=== PATIENT | male | born 1940 | race Caucasian/White ===

== ENCOUNTER 2017-01-19 05:00 | Emergency (ER) | payer MEDICARE, OTHER ==
[~2017-01-19] VITALS: Ht 180.3 cm; Wt 98.0 kg
[~2017-01-19 05:00] MED LIST: ASPI81TA11 PO; GLUC10TA3 PO; HYDR12.56 PO; LEVO75TA3 PO; METF500 PO; METO50TA PO; VASO10TA8 PO; ZOCO40TA PO
[2017-01-19] MEDS ORDERED: ASPI81CH CHEW (05:04)
[2017-01-19] MEDS ORDERED: ENAL10TA PO (05:04)
[2017-01-19] MEDS ORDERED: GLIP10TA6 PO (05:05)
[2017-01-19] MEDS ORDERED: METF500T PO (05:05)
[2017-01-19] MEDS ORDERED: LEVO75TA3 PO (05:05)
[2017-01-19 05:06] VITALS: BP 143/69; PULSE 71; RESP 18; TEMP 97.9; O2SAT 97
[2017-01-19] MEDS ORDERED: SIMV40TA PO (05:06)
[2017-01-19] MEDS ORDERED: METO50TA PO (05:06)
[2017-01-19] MEDS ORDERED: SODIUM CHLOR 0.9% 1000 ML INJ 1,000 ML IV ONE (05:15)
--- NOTE | 2017-01-19 05:24 | PD ---
HPI Chief Complaint: Diabetic Time Seen by Provider: 05:09 Travel History International Travel<30 days: No Contact w/Intl Traveler<30days: No Traveled to known affect area: No History of Present Illness HPI This 76-year-old male presents emergency department complaining of weakness. States he's been feeling perfectly well and healthy and then tonight while he was sleeping he got up to use the bathroom but states when he went to get up he felt too weak to be of the stand. His roommate called the ambulance. EMS found with a blood sugar in the 50s. They gave him some IV dextrose and his blood sugar improved. Patient feels little bit better in the emergency department here. They deny any numbness tingling or focal weakness. No chest pain or trouble breathing. No other complaints. Patient takes metformin and glipizide for his diabetes. History Past Medical History Narrative Medical Diabetes Hypertension Hyperlipidemia Tetanus Vaccination: Unknown Influenza Vaccination: Yes Social History Alcohol Use: Yes (occasional ) Tobacco Use: No Allergies-Medications (Allergen,Severity, Reaction): Coded Allergies: No Known Allergies (Unverified , 04/16/15) Reported Meds & Prescriptions Reported Meds & Active Scripts Active Reported Simvastatin 40 Mg Tab 40 Mg PO HS Metoprolol Tartrate 50 Mg Tab 50 Mg PO BID Metformin (Metformin HCl) 500 Mg Tab 500 Mg PO BIDPC With meals Levothyroxine (Levothyroxine Sodium) 75 Mcg Tab 75 Mcg PO DAILY Glipizide 10 Mg Tab 10 Mg PO DAILY Take 30 minutes before a meal Enalapril (Enalapril Maleate) 10 Mg Tab 10 Mg PO DAILY Aspirin 81 Mg Chew 81 Mg CHEW DAILY Review of Systems Except as stated in HPI: all other systems reviewed are Neg Physical Exam Narrative GENERAL: Well-appearing 76-year-old man, no acute distress. SKIN: Focused skin assessment warm/dry. HEAD: Atraumatic. Normocephalic. EYES: Pupils equal and round. No scleral icterus. No injection or drainage. ENT: No nasal bleeding or discharge. Mucous membranes pink and moist. NECK: Trachea midline. No JVD. CARDIOVASCULAR: Regular rate and rhythm. No murmur appreciated. RESPIRATORY: No accessory muscle use. Clear to auscultation. Breath sounds equal bilaterally. GASTROINTESTINAL: Abdomen soft, non-tender, nondistended. Hepatic and splenic margins not palpable. MUSCULOSKELETAL: No obvious deformities. No clubbing. No cyanosis. No edema. NEUROLOGICAL: Awake and alert. No obvious cranial nerve deficits. Motor grossly within normal limits. Normal speech. PSYCHIATRIC: Appropriate mood and affect; insight and judgment normal. Data Data Last Documented VS Vital Signs Date Time Temp Pulse Resp B/P Pulse Ox O2 Delivery O2 Flow Rate FiO2 01/19/17 05:06 97.9 71 18 143/69 97 Orders Complete Blood Count With Diff (01/19/17 05:09) Comprehensive Metabolic Panel (01/19/17 05:09) Urinalysis - C+S If Indicated (01/19/17 05:09) Iv Access Insert/Monitor (01/19/17 05:09) Sodium Chlor 0.9% 1000 Ml Inj (Ns 1000 M (01/19/17 05:15) Labs Laboratory Tests Test 01/19/17 01/19/17 05:15 06:20 White Blood Count 5.6 TH/MM3 Red Blood Count 4.28 MIL/MM3 Hemoglobin 12.7 GM/DL Hematocrit 38.2 % Mean Corpuscular Volume 89.2 FL Mean Corpuscular Hemoglobin 29.5 PG Mean Corpuscular Hemoglobin 33.1 % Concent Red Cell Distribution Width 14.5 % Platelet Count 173 TH/MM3 Mean Platelet Volume 8.8 FL Neutrophils (%) (Auto) 77.2 % Lymphocytes (%) (Auto) 9.6 % Monocytes (%) (Auto) 9.5 % Eosinophils (%) (Auto) 2.9 % Basophils (%) (Auto) 0.8 % Neutrophils # (Auto) 4.3 TH/MM3 Lymphocytes # (Auto) 0.5 TH/MM3 Monocytes # (Auto) 0.5 TH/MM3 Eosinophils # (Auto) 0.2 TH/MM3 Basophils # (Auto) 0.0 TH/MM3 CBC Comment DIFF FINAL Differential Comment Sodium Level 141 MEQ/L Potassium Level 4.3 MEQ/L Chloride Level 108 MEQ/L Carbon Dioxide Level 23.3 MEQ/L Anion Gap 10 MEQ/L Blood Urea Nitrogen 23 MG/DL Creatinine 1.15 MG/DL Estimat Glomerular Filtration 62 ML/MIN Rate Random Glucose 105 MG/DL Calcium Level 8.8 MG/DL Total Bilirubin 0.4 MG/DL Aspartate Amino Transf 14 U/L (AST/SGOT) Alanine Aminotransferase 15 U/L (ALT/SGPT) Alkaline Phosphatase 59 U/L Total Protein 7.2 GM/DL Albumin 3.7 GM/DL Urine Color YELLOW Urine Turbidity CLEAR Urine pH 5.0 Urine Specific [place] 1.018 Urine Protein NEG mg/dL Urine Glucose (UA) NEG mg/dL Urine Ketones NEG mg/dL Urine Occult Blood NEG Urine Nitrite NEG Urine Bilirubin NEG Urine Urobilinogen LESS THAN 2.0 MG/DL Urine Leukocyte Esterase NEG Urine Squamous Epithelial <1 /hpf Cells Urine Mucus FEW /lpf Microscopic Urinalysis Comment CULT NOT INDICATED MDM Medical Decision Making Medical Screen Exam Complete: Yes Emergency Medical Condition: Yes Interpretation(s) My review of EKG: Normal sinus rhythm at a rate of 71, normal axis, normal intervals, no ischemia. Differential Diagnosis Weakness, infection, electrolyte abnormality, hypoglycemia, other Narrative Course Medical decision making This 76 year-old woman who presents to the emergency department complaining of generalized weakness. Blood sugar was a little bit low. I'm not sure this is the etiology or not. We'll check some labs, check his urine, give him IV fluids , feed him, reassess. Labs are normal and he feels better we'll let him go home. Diagnosis Primary Impression: Weakness Additional Impression: Hypoglycemia Additional Instructions: Continue current medications. Follow up with your primary doctor in 2-3 days. Return to the emergency department for any new or worsening symptoms. Med/Other Pt SpecificInfo: No Change to Meds Disposition: 01 DISCHARGE HOME Condition: Stable Chris Talley MD Jan 19, 2017 05:24
[2017-01-19 05:29] LABS: AUTOMATED NEUTROPHIL # 4.3 TH/MM3 (1.8-7.7); BASOPHIL % 0.8 % (0.0-2.0); EOSINOPHIL # 0.2 TH/MM3 (0-0.4); EOSINOPHIL % 2.9 % (0.0-4.0); HEMATOCRIT 38.2 % (39.0-51.0); HEMO FLAGS DIFF FINAL; LYMPH % 9.6 % (9.0-44.0); LYMPHOCYTE # 0.5 TH/MM3 (1.0-4.8); MEAN CELL VOLUME 89.2 FL (80.0-100.0); MEAN CORPUSCULAR HEMOGLOBIN 29.5 PG (27.0-34.0); MEAN CORPUSCULAR HGB CONC 33.1 % (32.0-36.0); MONO % 9.5 % (0.0-8.0); NEUT % 77.2 % (16.0-70.0); PLATELET COUNT 173 TH/MM3 (150-450); RED BLOOD COUNT 4.28 MIL/MM3 (4.50-5.90); RED CELL DISTRIBUTION WIDTH 14.5 % (11.6-17.2); WHITE BLOOD COUNT 5.6 TH/MM3 (4.0-11.0)
[2017-01-19 06:05] LABS: ALT (GPT) 15 U/L (12-78); ANION GAP 10 MEQ/L (5-15); AST (GOT) 14 U/L (15-37); BICARBONATE 23.3 MEQ/L (21.0-32.0); BLOOD UREA NITROGEN 23 MG/DL (7-18); CHLORIDE 108 MEQ/L (98-107); GLOMERULAR FILTRATION RATE 62 ML/MIN (>89); POTASSIUM 4.3 MEQ/L (3.5-5.1); SODIUM (NA) 141 MEQ/L (136-145)
[2017-01-19 06:07] LABS: ALKALINE PHOSPHATASE 59 U/L (45-117); TOTAL BILIRUBIN ADULT 0.4 MG/DL (0.2-1.0)
[2017-01-19 06:56] LABS: BLOOD, URINE NEG (NEG); COMMENT (UR) CULT NOT INDICATED; CULTURE IF INDICATED CULT NOT INDICATED; GLUCOSE,URINE NEG (NEG); KETONE, URINE NEG (NEG); MUCUS URINE FEW /lpf (OCC); NITRITE,URINE NEG (NEG); SQUAMOUS EPITHELIAL CELL URINE <1 /hpf (0-5); URINE COLOR YELLOW (YELLW/STRAW)
[2017-01-19 07:12] VITALS: BP 126/66; TEMP 97.6
[2017-01-19 07:13] VITALS: BP 126/66; PULSE 75; RESP 19; TEMP 97.6; O2SAT 97
--- NOTE | 2017-01-20 10:51 | EKG ---
Date Performed: 01/19/2017 Time Performed: 05:07:31 PTAGE: 76 years EKG: Sinus rhythm MARKED LEFT AXIS DEVIATION LOW QRS VOLTAGE IN EXTREMITY LEADS ABNORMAL ECG NO PREVIOUS TRACING DOCTOR: Chris Casarez Interpretating Date/Time 01/20/2017 10:51:00
== END 2017-01-19 07:33 | disposition home or self-care (01) ==
LOC: NEPE 05:00
DX: R53.1 Weakness (principal); E11.649 Type 2 diabetes mellitus with hypoglycemia without coma; R94.31 Abnormal electrocardiogram [ECG] [EKG]; I10 Essential (primary) hypertension; Z79.84 Long term (current) use of oral hypoglycemic drugs; Z79.82 Long term (current) use of aspirin
CPT/HCPCS: 80053; 81001; 85025; 93005; 96360; 99284; J7030

== ENCOUNTER 2017-03-20 14:39 | Emergency (ER) | payer OTHER ==
[~2017-03-20] VITALS: Ht 180.3 cm; Wt 92.9 kg
[~2017-03-20 14:39] MED LIST changes: +ASPI81CH CHEW; -ASPI81TA11 PO; +ENAL10TA PO; +GLIP10TA6 PO; -GLUC10TA3 PO; -HYDR12.56 PO; -METF500 PO; +METF500T PO; +SIMV40TA PO; -VASO10TA8 PO; -ZOCO40TA PO
[2017-03-20 14:56] VITALS: BP 120/57; PULSE 78; RESP 20; TEMP 97.1
[2017-03-20] MEDS ORDERED: HYDR12.56 PO (16:21)
--- NOTE | 2017-03-20 16:23 | PD ---
HPI Chief Complaint: Injury Time Seen by Provider: 16:00 Travel History International Travel<30 days: No Contact w/Intl Traveler<30days: No Traveled to known affect area: No History of Present Illness HPI 76-year-old male presents to the emergency room for evaluation of right knee pain, swelling, and bruising for the past 2 days. Patient states he tripped on the divider between the carpet and the linoleum and landed directly on the carpet with his right knee. He also struck his forehead on the carpet but denies loss of consciousness. He denies headache, nausea, and vomiting. He takes 81 mg aspirin daily. Patient states he did not come to the emergency room sooner because he did not have significant pain and has been able to walk on it without difficulty. Denies paresthesias. States he decided to have it checked out today because of the significant increase in bruising and swelling. He reports mild, dull, aching pain of the entire right leg. PFSH Past Medical History High Cholesterol: Yes Diabetes: Yes (type 2) Hypertension: Yes Thyroid Disease: Yes Social History Alcohol Use: Yes (occasional ) Tobacco Use: No Substance Use: No Allergies-Medications (Allergen,Severity, Reaction): Coded Allergies: No Known Allergies (Unverified , 04/16/15) Reported Meds & Prescriptions Reported Meds & Active Scripts Active Reported Hydrochlorothiazide 12.5 Mg Tab 12.5 Mg PO DAILY Simvastatin 40 Mg Tab 40 Mg PO HS Metoprolol Tartrate 50 Mg Tab 50 Mg PO BID Metformin (Metformin HCl) 500 Mg Tab 500 Mg PO BIDPC With meals Levothyroxine (Levothyroxine Sodium) 75 Mcg Tab 75 Mcg PO DAILY Glipizide 10 Mg Tab 10 Mg PO DAILY Take 30 minutes before a meal Enalapril (Enalapril Maleate) 10 Mg Tab 20 Mg PO DAILY Aspirin 81 Mg Chew 81 Mg CHEW DAILY Review of Systems Except as stated in HPI: all other systems reviewed are Neg Physical Exam Narrative GENERAL: Well-nourished, well-developed male in no acute distress. Afebrile. Ambulatory. SKIN: Focused skin assessment warm/dry. Extreme ecchymosis from the right thigh down to the right foot. HEAD: Normocephalic. EYES: No scleral icterus. No injection or drainage. NECK: Supple, trachea midline. No JVD or lymphadenopathy. CARDIOVASCULAR: Regular rate and rhythm without murmurs, gallops, or rubs. RESPIRATORY: Breath sounds equal bilaterally. No accessory muscle use. MUSCULOSKELETAL: No cyanosis. 2+ pitting edema on the right foot. 1+ dorsalis pedis pulse. Obvious effusion of the right knee. Full range of motion of the right lower extremity. No bony tenderness to palpation of the knee. Data Data Last Documented VS Vital Signs Date Time Temp Pulse Resp B/P (MAP) Pulse Ox O2 Delivery O2 Flow Rate FiO2 03/20/17 14:56 97.1 78 20 120/57 (78) Orders Orders Knee, Complete (4vws) (03/20/17 ) Us Leg Venous Doppler (03/20/17 ) [facility] Medical Decision Making Medical Screen Exam Complete: Yes Emergency Medical Condition: Yes Medical Record Reviewed: Yes Differential Diagnosis Effusion, contusion, ecchymosis, DVT unlikely Narrative Course 76-year-old male presents to the emergency room for evaluation of right knee bruising and swelling after trip and fall 3 days ago. Patient tripped on carpet and fell forward landing directly on his knee. He then hit his face but denies loss of consciousness. He takes 81 mg aspirin daily. Denies headache, nausea, vomiting, neck pain, or changes in mental status. Patient denies pain in his knee but was concerned about the significant increase in bruising and swelling since swelling. He has been ambulatory without difficulty. No paresthesias. Physical exam reveals extreme ecchymosis and 2+ pitting edema from the mid thigh to the foot. Patient has full range of motion. There is no bony tenderness to palpation. There is obvious effusion of the right knee. 1+ dorsalis pedis pulse. X-ray of the knee is negative except for soft tissue swelling. Ultrasound shows no evidence of DVT. At this time there are no signs and symptoms of infection. Patient was encouraged to elevate leg as much as possible. The right knee was wrapped to prevent further bleeding. Patient was reassured and told to follow up with a primary care physician or return immediately for any signs and symptoms of infection. He understands and agrees to plan. Diagnosis Primary Impression: Contusion of right leg Qualified Codes: S80.11XA - Contusion of right lower leg, initial encounter Referrals: Primary Care Physician Additional Instructions: Rest and drink plenty of fluids. Take Tylenol as directed, as needed for pain. Elevate as much as possible. Apply ice to the affected area for 20 minutes at a time, as needed for pain and swelling. Follow-up with a primary care physician. Return to the emergency room for worsening symptoms. Disposition: 01 DISCHARGE HOME Condition: Stable Brandy Velasquez Mar 20, 2017 16:23
--- NOTE | 2017-03-20 17:07 | RADRPT ---
EXAM DATE/TIME: 03/20/2017 16:36 [facility] COMPARISON: No previous studies available for comparison. INDICATIONS : Right knee swelling and bruising after falling a week ago. MEDICAL HISTORY : None. SURGICAL HISTORY : None. ENCOUNTER: Initial ACUITY: 1 week PAIN SCORE: 0/10 LOCATION: Right knee. FINDINGS: A standard 4 view examination of the right knee was obtained and demonstrate soft tissue swelling ove r the anterior patella. There is no acute fracture or malalignment. Chondrocalcinosis is present in t he medial lateral compartments. There are mild degenerative changes with slight spurring. There is no rmal mineralization and alignment. CONCLUSION: 1. Soft tissue swelling anteriorly with no acute fracture or malalignment. 2. Degenerative changes with mild spurring and chondrocalcinosis. Rios Canales MD on March 20, 2017 at 17:04 Board Certified Radiologist. This report was verified electronically.
--- NOTE | 2017-03-20 17:08 | RADRPT ---
EXAM DATE/TIME: 03/20/2017 16:58 [facility] COMPARISON: No previous studies available for comparison. INDICATIONS : Right leg swelling. MEDICAL HISTORY : Hypercholesterolemia. Hypertension. Diabetes mellitus type 2. Thyroid disease. SURGICAL HISTORY : None. ENCOUNTER: Initial ACUITY: 2 day PAIN SCORE: 2/10 LOCATION: Right leg. TECHNIQUE: Venous ultrasound of the leg was performed from the inguinal ligament to the proximal calf. Real-rufino e, color Doppler and spectral tracing, compression and augmentation techniques were used. FINDINGS: There is normal compressibility of the deep venous system from the inguinal region to the proximal ca lf. No echogenic clot is seen in the lumen of the common femoral, femoral, popliteal, and posterior tibial veins. There is a normal response of the venous system to proximal and distal augmentation an d respiration. CONCLUSION: Negative exam with no evidence of deep venous thrombosis. Rios Canales MD on March 20, 2017 at 17:06 Board Certified Radiologist. This report was verified electronically.
== END 2017-03-20 17:36 | disposition home or self-care (01) ==
LOC: PHED 14:39 → PHEFT 17:36
DX: S80.11XA Contusion of right lower leg, initial encounter (principal); E11.9 Type 2 diabetes mellitus without complications; W01.198A Fall on same level from slipping, tripping and stumbling with subsequent striking against other object, initial encounter; Y92.009 Unspecified place in unspecified non-institutional (private) residence as the place of occurrence of the external cause; Z79.84 Long term (current) use of oral hypoglycemic drugs
CPT/HCPCS: 73564; 93971; 99284